=== PATIENT | female | born 1985 | race Asian ===

== ENCOUNTER → 2020-10-06 | Outpatient (CLI) | payer OTHER ==
[~2020-10-06] MED LIST: IBUP-1222 PO; NONE PER PT; OXYC1TAB14 PO
== END | disposition home or self-care (01) ==
LOC: STAR 11:05
PROVIDERS: ATTEND Obstetrics & Gynecology
DX: Z01.812 Encounter for preprocedural laboratory examination (principal); Z20.822 Contact with and (suspected) exposure to COVID-19
CPT/HCPCS: 36415; 80053; 81001; 84702; 85025; 87086; U0003

== ENCOUNTER 2020-10-09 05:57 | Day surgery (SDC) | payer OTHER ==
[2020-10-06 12:23] LABS: BASOPHILS % (AUTO) 1 % (0-1); EOSINOPHILS % (AUTO) 2 % (1-7); LYMPHOCYTES % (AUTO) 31 % (22-44); MD NO; MEAN CORPUSCULAR HEMOGLOBIN 26.6 pg (27.0-34.8); MEAN CORPUSCULAR HGB CONC 32.9 g/dL (32.4-35.8); MONOCYTES % (AUTO) 7 % (2-9); NEUTROPHILS % (AUTO) 59 % (42-75); PLATELET COUNT 337 x10^3/uL (130-400); RED BLOOD COUNT 4.64 x10^6/uL (3.82-5.3); RED CELL DISTRIBUTION WIDTH 14.5 % (9.6-15.2)
[2020-10-06 12:30] LABS: MICROSCOPIC INDICATED
[2020-10-06 12:33] LABS: ALBUMIN 3.9 g/dL (3.4-5.0); CALCIUM 8.3 mg/dL (8.5-10.1)
[2020-10-06 12:41] LABS: ALANINE AMINOTRANSFERASE 21 U/L (12-78); ALKALINE PHOSPHATASE 74 U/L (45-117); BILIRUBIN,TOTAL 0.8 mg/dL (0.2-1.0); CREATININE 0.68 mg/dL (0.55-1.02); TOTAL PROTEIN 7.8 g/dL (6.4-8.2)
[2020-10-06 12:44] LABS: ANION GAP 5 mmol/L (5-15); CHLORIDE 110 mmol/L (98-107)
[~2020-10-09] VITALS: Ht 162.6 cm; Wt 61.1 kg
[2020-10-09] MEDS ORDERED: CHLORHEXIDINE 15 ML UDC ONE (06:36)
[2020-10-09 06:46] VITALS: BP 110/72
[2020-10-09] MEDS ORDERED: CHLORHEXIDINE 15 ML UDC MM ONE (07:00)
[2020-10-09] MEDS ORDERED: LACTATED RINGERS 1,000 ML IV SCH (07:00)
[2020-10-09] MEDS ORDERED: EPINEPHRINE 1 MG/ML, 1ML ONE (07:08)
[2020-10-09] MEDS ORDERED: SILVER NITRATE STICK TP ONE (07:08)
[2020-10-09] MEDS ORDERED: BUPIVACAINE/PF 0.25% ONE (07:08)
[2020-10-09 07:17] LABS: HCG UR SG 1.008 (1.003-1.030)
[2020-10-09] MEDS ORDERED: FENTANYL PF 100 MCG/2ML ONE (07:25)
[2020-10-09] MEDS ORDERED: MIDAZOLAM 1 MG/ML, 2ML ONE (07:25)
[2020-10-09] MEDS ORDERED: HYDROcodone/APAP 7.5-325MG/15ML UDC PO PRN (07:30)
[2020-10-09] MEDS ORDERED: HALOPERIDOL 5 MG/ML IV PRN (07:30)
[2020-10-09] MEDS ORDERED: LABETALOL 5MG/ML, 20ML IV PRN (07:30)
[2020-10-09] MEDS ORDERED: FENTANYL PF 100 MCG/2ML IV PRN (07:30)
[2020-10-09] MEDS ORDERED: hydrALAzine 20 MG/ML, 1ML IV PRN (07:30)
[2020-10-09] MEDS ORDERED: DIPHENHYDRAMINE 50 MG/ML, 1ML IVPush PRN (07:30)
[2020-10-09] MEDS ORDERED: HYDROmorphone 1 MG/ML, 1ML INJ IVPush PRN (07:30)
[2020-10-09] MEDS ORDERED: MEPERIDINE/PF 25MG/0.5ML IVPush PRN (07:30)
[2020-10-09] MEDS ORDERED: PROMETHAZINE 25 MG/ML, 1ML IVPush PRN (07:30)
[2020-10-09] MEDS ORDERED: DEXAMETHASONE 4 MG/ML, 1ML ONE (07:38)
[2020-10-09] MEDS ORDERED: KETOROLAC 30 MG/1 ML ONE (07:54)
[2020-10-09] MEDS ORDERED: PROPOFOL 10 MG/ML, 20ML ONE (07:56)
[2020-10-09] MEDS ORDERED: CEFAZOLIN 1,000 MG ONE (07:56)
[2020-10-09] MEDS ORDERED: ONDANSETRON 2MG/ML, 2ML ONE (07:56)
== END 2020-10-09 11:15 | disposition home or self-care (01) ==
LOC: OUT 05:57
PROVIDERS: ATTEND Obstetrics & Gynecology
DX: T83.89XA Other specified complication of genitourinary prosthetic devices, implants and grafts, initial encounter (principal); Y83.8 Other surgical procedures as the cause of abnormal reaction of the patient, or of later complication, without mention of misadventure at the time of the procedure; Z98.890 Other specified postprocedural states; Z83.3 Family history of diabetes mellitus
CPT/HCPCS: 36415; 58562; 81025; 86850; 86900; J0171; J0690; J1100; J1885; J2250; J2405; J2704; J3010; J7120; 80053; 81001; 84702; 85025; 87086; U0003